=== PATIENT | female | born 1960 | race Caucasian/White ===

== ENCOUNTER → 2017-11-14 | Day surgery (SDC) | payer OTHER, MEDICAID ==
[~2017-11-14] VITALS: Ht 149.9 cm; Wt 61.5 kg
[~2017-11-14] MED LIST: ASPI81TA23 PO; BUPIVACAINE HCL PF 0.5% 10 ML VIAL ONE; BYST5TAB2 PO; CEPH-460 PO; CHLORHEXIDINE GLUCONATE 2 % 1 PACK (2 CLOTHS) TOPICAL PRN; CYCL5TAB PO; FAMOTIDINE 20 MG/2 ML VIAL ONE; HYDR-3288 PO; IBUP-232 PO; IBUP1TAB7 PO; LACTATED RINGER'S 1000 ML IV PRN; LIDOCAINE HCL 2% 50 ML VIAL ONE; LOSA100T PO; METOPROLOL TARTRATE 25 MG TAB PO PRN; MIDAZOLAM HCL 5 MG/ML VIAL (1 ML) ONE; NAPR-855 PO; NEOMYCIN/POLYMYXIN 1 ML G.U. IRRIGANT ONE; ONDANSETRON HCL 4 MG/2 ML VIAL ONE; OXYC30TA62 PO; POVIDONE IODINE 5% (ANTISEPSIS KIT) 4 APPLICATIONS EACH NARE PRN; PROMETHAZINE INJ 25 MG/ML VIAL ONE; SODIUM CHLORID 0.9% 500 ML IV PRN; ceFAZolin 1,000 MG/NS 100 ML IV SCH
[2017-11-14 11:20] VITALS: PULSE 77
[2017-11-14 13:29] VITALS: PULSE 90
--- NOTE | 2017-11-14 15:00 | EKG ---
Date Performed: 11/14/2017 Time Performed: 10:58:49 PTAGE: 57 years EKG: Sinus rhythm NORMAL ECG NO PREVIOUS TRACING DOCTOR: Marco Trent Interpretating Date/Time 11/14/2017 14:59:20
--- NOTE | 2017-11-14 17:46 | MP ---
cc: Asad Davis MD DATE OF OPERATION: 11/14/2017 POSTOPERATIVE DIAGNOSES: 1. Left distal radius fracture. 2. Left ulnar styloid fracture. PROCEDURE PERFORMED: 1. Left distal radius open reduction, internal fixation. 2. Left brachioradialis Z-lengthening. 3. Left ulnar styloid open reduction, internal fixation. 4. Use of image intensifier. A 22 modifier appended to this as it is 5, almost 6 weeks old and fracture is nearly healed but was not healed enough to be considered an osteotomy, but it took a lot of whittling and dissection get the required mobility. SURGEON: Asad Davis III, TOURNIQUET TIME: 65 minutes at 200 mmHg. DESCRIPTION OF PROCEDURE: The patient was brought to the operating room, placed supine on the operating table. After the correct site and side of surgery were verified by members of each team in the room multiple times, including the patient and myself, and after adequate preoperative markings, preoperative written consent and preoperative timeout was performed to everyone's satisfaction, after adequate anesthesia was achieved, the left upper extremity was prepped and draped in traditional sterile surgical fashion. Using the C-arm throughout the case, the procedure was performed. The limb was exsanguinated using Trevor wrap and the highly-placed well-padded axillary tourniquet was inflated to 200 mmHg for a total of 65 minutes. A longitudinally oriented incision over the volar aspect of the distal radius was made, carried down through skin and subcutaneous tissues. Blunt dissection was performed. The radial artery was identified and protected the entire case. The flexor carpi radialis was retracted in an ulnar direction and the radial artery in the radial direction. The pronator quadratus was then sharply elevated from the volar aspect of the distal radius. The fracture plane was identified, debrided and then very carefully and meticulously whittled apart. The brachioradialis was then identified and a Z-lengthening was performed, releasing it initially. Posterior aspect of the radius was then addressed and the periosteum was incised to permit reduction. Thorough irrigation was performed. The cancellous bone graft was used to provide structural support and restore a little bit of length. Reduction was then obtained restoring the radial inclination and most of the volar tilt and was secured using a K-wire. Using a Synthes distal radius set, a narrow plate was then selected and placed as posterior to the watershed area as possible. Distal screws were placed first and then the final reduction was performed, securing the stem to the radial shaft and then the final 2 screws inserted. This was all done with mini C-arm guidance. Passive range of motion examination was performed and was full and had no evidence of any crepitance or limitation. The axillary tourniquet was released. The hand and all the fingers became immediately soft, pink and warm with brisk capillary refill. A small bleeding branch of the radial artery was bleeding, and that was easily controlled with bipolar electrocautery and an 8-0 nylon suture from its origin. The radial artery was soft, full and pulsatile, otherwise. There was no other active bleeding. More than a liters' worth of saline irrigation was used throughout the case. The brachioradialis was then reattached to itself in a Z-lengthening procedure using 3-0 Ethibond sutures in a [id number] fashion multiple times. The pronator quadratus was then reattached to surrounding tissue covering the hardware. The radial artery was examined once again and found to be noncompromised. Deep subcutaneous tissues were reapproximated using 3-0 Vicryl sutures, and the skin edges were reapproximated using running and interrupted 4-0 nylon sutures. Attention was then paid to the ulnar styloid. A 3 cm longitudinal incision was made overlying it. A small amount of dissection down around the ulnar styloid in the distal ulna was performed. Scar tissue and soft tissue that was interposed between the ulnar styloid and its origin was cleared. A 0.035 and a 0.045 cm K-wire were then used to secure and reseat the ulnar styloid and then a #2 FiberWire was used in a nmcuti-do-gphht fashion through the periosteum of the distal ulna around the ulnar styloid. The pins were tailored to length, cut, bent and are buried inside and will be removed at a later time if needed. Thorough irrigation was performed. Soft tissues were reapproximated using a couple of 3-0 Vicryl sutures. Then, the skin edges were reapproximated using running 4-0 nylon suture. The hand and arm were thoroughly cleansed and dried. Final x-rays were obtained. There was no prominence into any joint of any hardware. Betadine, Adaptic dressings were applied on top of the wounds, followed by a bulky well-padded, well-molded, long-arm sugar-tong splint in the usual fashion. The patient was awakened from anesthesia and transported to the postanesthesia care unit awake and in stable condition at the end of the case. Sponge, needle and instrument counts were correct at the end of the case as reported by nurses in the room. MD CHRISSY Marshall/SERENA , 05:06 PM , 05:45 PM [facility]
[2017-11-14 18:15] VITALS: BP 149/82; PULSE 90; RESP 16; TEMP 98.7; O2SAT 95
== END | disposition home or self-care (01) ==
LOC: PHSDC 10:17
PROVIDERS: ATTEND Orthopaedic Surgery Hand Surgery
DX: S52.502A Unspecified fracture of the lower end of left radius, initial encounter for closed fracture (principal); S52.612A Displaced fracture of left ulna styloid process, initial encounter for closed fracture; W19.XXXA Unspecified fall, initial encounter; F17.200 Nicotine dependence, unspecified, uncomplicated; Z86.73 Personal history of transient ischemic attack (TIA), and cerebral infarction without residual deficits; Z01.810 Encounter for preprocedural cardiovascular examination
CPT/HCPCS: 01830; 25280; 25607; 25652; 64415; 76000; 93005; C1713; J0690; J2250; J2405; J3010; J7120; J2550